=== PATIENT | male | born 1990 | race Caucasian/White ===

== ENCOUNTER → 2020-10-09 | Outpatient (CLI) | payer OTHER | LOC: COL.CARD 11:37 | DX: R00.2 Palpitations (principal) ==

== ENCOUNTER → 2020-11-02 | Outpatient (CLI) | payer OTHER | LOC: COL.CARD 11:17 | DX: R00.2 Palpitations (principal) ==

== ENCOUNTER 2022-01-31 02:29 | Emergency (ER) | payer OTHER ==
[~2022-01-31] VITALS: Ht 188 cm; Wt 95.5 kg
[2022-01-31 02:36] VITALS: TEMP 97.9
[2022-01-31 03:07] LABS: BASO # 0.1 K/mm3 (0.0-0.2); BASO % 1.5 % (0.0-2.0); EOS # 0.1 K/mm3 (0.0-0.7); GRAN # 1.5 K/mm3 (1.4-6.5); GRAN % 37.4 % (42.2-75.2); HEMATOCRIT 41.4 % (42.0-52.0); HEMOGLOBIN 14.5 g/dl (13.5-18.0); LYMPH % 50.2 % (20.0-51.0); MEAN CELL VOLUME 86 fl (80.0-100.0); MEAN CORPUSCULAR HEMOGLOBIN 30 pg (27-31); MEAN CORPUSCULAR HGB CONC 35 g/dl (33.0-37.0); MEAN PLATELET VOLUME 9.1 fl (7.4-10.4); MONO # 0.4 K/mm3 (0.1-0.6); MONO % 8.7 % (1.7-9.3); PLATELET COUNT 255 K/mm3 (130-400); RED BLOOD COUNT 4.82 M/mm3 (4.20-5.60); REDCELL DISTRIBUTION WIDTH-CV 12.5 % (11.5-14.5)
[2022-01-31 03:26] LABS: ALANINE AMINOTRANSFERASE 23 U/L (0-55); ALBUMIN 4.3 gm/dL (3.5-5.0); ALKALINE PHOSPHATASE 64 U/L (40-150); ANION GAP 10 mmol/L (7-16); AST,SGOT 17 U/L (5-34); BILIRUBIN,TOTAL 0.4 mg/dL (0.2-1.2); BLOOD UREA NITROGEN 13 mg/dL (9-21); CALCIUM 9.6 mg/dL (8.4-10.2); CARBON DIOXIDE 24 mmol/L (22-29); CHLORIDE 107 mmol/L (98-107); GLUCOSE 102 mg/dL (70-99); POTASSIUM 3.8 mmol/L (3.5-4.5); SODIUM 141 mmol/L (136-145); TOTAL PROTEIN 7.6 gm/dL (6.2-8.1)
[2022-01-31 03:27] LABS: C-REACTIVE PROTEIN < 0.02 mg/dL (0.00-0.50)
[2022-01-31 03:33] LABS: TROPONIN-I < 0.010 ng/mL (0.00-0.033)
[2022-01-31 03:43] VITALS: BP 135/84; PULSE 73
== END 2022-01-31 03:48 | disposition home or self-care (01) ==
LOC: COL.ER 02:29
PROVIDERS: Emergency Medicine
DX: R07.89 Other chest pain (principal); Z82.49 Family history of ischemic heart disease and other diseases of the circulatory system
CPT/HCPCS: J1885; J7030